=== PATIENT | male | born 2000 | race Two or more races ===

== ENCOUNTER 2025-02-01 21:07 | Emergency (ER) | payer BC, OTHER ==
[~2025-02-01] VITALS: Ht 177.8 cm; Wt 86.3 kg
[2025-02-01 21:15] VITALS: BP 141/97; RESP 16; TEMP 98; O2SAT 97
[2025-02-01 21:22] VITALS: PULSE 76
--- NOTE | 2025-02-02 12:31 | ECG ---
[facility] Test Date: 2025-02-01 Test Time: 21:17:52 Pat Name: WANDA PINO Department: ER Room: Gender: M Specialty Therapist: : [id number] Requested By: LAMAR BEAVERS Order Number: [id number] Reading MD: Dov Brito Measurements Intervals Casar Rate: 76 P: 56 WV: 146 QRS: 42 QRSD: 97 T: 34 QT: 372 QTc: 419 Interpretive Statements Sinus rhythm Baseline wander in lead(s) V1,V2 Electronically Signed On 02-03-2025 17:44:11 PDT by Dov Brito Please click the below link to view image of tracing.
== END 2025-02-01 21:44 | disposition left against medical advice (07) ==
LOC: ER 21:07
DX: R00.2 Palpitations (principal); Z53.21 Procedure and treatment not carried out due to patient leaving prior to being seen by health care provider
CPT/HCPCS: 93005